=== PATIENT | female | born 1950 | race African-American/Black ===

== ENCOUNTER 2017-11-05 14:31 | Inpatient (IN) | payer MEDICARE, MEDICAID ==
[~2017-11-05] VITALS: Ht 162.6 cm; Wt 76.7 kg
[~2017-11-05 14:31] MED LIST: HYDROCODONE PO
[2017-11-05] MEDS ORDERED: KETOROLAC 30MG/ML VIAL IV STA (15:20)
[2017-11-05 16:53] LABS: BASOPHILS % 0.9 % (0.0-2.0); EOSINOPHILS % 2.5 % (0.0-5.0); HEMATOCRIT. 42.8 % (36.0-48.0); HEMOGLOBIN. 14.2 g/dL (12.0-16.0); LYMPHOCYTES % 40.8 % (20.0-50.0); MEAN CORPUSCULAR HEMOGLOBIN 30.6 pg (28.0-32.0); MEAN CORPUSCULAR VOLUME 92.2 fL (81.0-99.0); MEAN PLATELET VOLUME 9.4 fl (7.4-10.4); MONOCYTES % 14.1 % (2.0-8.0); NEUTROPHILS % 41.7 % (40.0-76.0); PLATELET 246 x1000/uL (130-400); RED BLOOD CELL COUNT 4.65 mill/uL (4.2-5.4); RED CELL DISTRIBUTION WIDTH 15.7 % (11.6-14.6)
[2017-11-05 16:59] LABS: CHLORIDE 104 mEq/L (98-107)
[2017-11-05 17:00] LABS: PARTIAL THROMBOPLASTIN TIME 34.4 sec (23.4-31.0); PROTHROMBIN TIME 10.5 sec (9.1-11.1)
[2017-11-05] MEDS ORDERED: CLONIDINE 0.1MG TABLET PO PRN (17:00)
[2017-11-05] MEDS ORDERED: ONDANSETRON HCL 4MG/2ML INJ IV PRN (17:00)
[2017-11-05] MEDS ORDERED: MORPHINE SULFATE 4 MG/ML CPJ (NOT FOR IM USE) IV PRN (17:30)
[2017-11-05 20:00] VITALS: BP 106/56
[2017-11-05 20:24] LABS: CLARITY URINE CLEAR (CLEAR); COLOR URINE YELLOW (YELLOW); KETONES URINE NEGATIVE (NEGATIVE); LEUKOCYTE ESTERASE URINE TRACE (NEGATIVE); NITRITE URINE NEGATIVE (NEGATIVE); OCCULT BLOOD URINE NEGATIVE (NEGATIVE); PH URINE 5.5 (4.5-8.0); PROTEIN URINE NEGATIVE (NEGATIVE); SPECIFIC GRAVITY URINE 1.015 (1.005-1.030)
[2017-11-05] MEDS: HYDROCODONE/ACETAMINOPHEN 5/325MG TABLET PO PRN (20:43)
[2017-11-05 22:14] VITALS: BP 106/56
[2017-11-06] VITALS: BP 108/51
[2017-11-06 04:00] VITALS: BP 123/55
[2017-11-06 06:57] LABS: CHLORIDE 105 mEq/L (98-107)
[2017-11-06 08:00] VITALS: BP 112/61
[2017-11-06 12:00] VITALS: BP 123/48
[2017-11-06 13:14] LABS: BASOPHILS % 0.5 % (0.0-2.0); EOSINOPHILS % 2.9 % (0.0-5.0); HEMATOCRIT. 40.2 % (36.0-48.0); HEMOGLOBIN. 13.2 g/dL (12.0-16.0); LYMPHOCYTES % 50.1 % (20.0-50.0); MEAN CORPUSCULAR HEMOGLOBIN 30.1 pg (28.0-32.0); MEAN CORPUSCULAR VOLUME 91.8 fL (81.0-99.0); MEAN PLATELET VOLUME 9.5 fl (7.4-10.4); MONOCYTES % 13.1 % (2.0-8.0); NEUTROPHILS % 33.4 % (40.0-76.0); PLATELET 223 x1000/uL (130-400); RED BLOOD CELL COUNT 4.38 mill/uL (4.2-5.4); RED CELL DISTRIBUTION WIDTH 15.7 % (11.6-14.6)
[2017-11-06 16:00] VITALS: BP 121/60
[2017-11-06 20:00] VITALS: BP 105/49
[2017-11-06] MEDS: ENOXAPARIN 40MG/0.4ML SYR SUBCUT SCH (20:48)
[2017-11-07] VITALS: BP 119/46
[2017-11-07 04:00] VITALS: BP 110/46
[2017-11-07 08:00] VITALS: BP 135/64
[2017-11-07 12:00] VITALS: BP 127/59
[2017-11-07 16:00] VITALS: BP 122/58
[2017-11-07] MEDS: ENOXAPARIN 40MG/0.4ML SYR SUBCUT SCH (17:42)
[2017-11-07 20:00] VITALS: BP 113/59
[2017-11-08] VITALS: BP 129/66
[2017-11-08 04:00] VITALS: BP 117/69
[2017-11-08] MEDS: HYDROCODONE/ACETAMINOPHEN 5/325MG TABLET PO PRN ×2 (06:12→22:56)
[2017-11-08 08:00] VITALS: BP 119/52
[2017-11-08 12:00] VITALS: BP 139/63
[2017-11-08 16:00] VITALS: BP 102/30
[2017-11-08] MEDS: ENOXAPARIN 40MG/0.4ML SYR SUBCUT SCH (17:08)
[2017-11-08 20:00] VITALS: BP 106/52
[2017-11-09] VITALS: BP 126/66
[2017-11-09] MEDS: HYDROCODONE/ACETAMINOPHEN 5/325MG TABLET PO PRN ×2 (03:26→23:48)
[2017-11-09 04:00] VITALS: BP 124/75
[2017-11-09 05:56] LABS: HEMATOCRIT. 42.8 % (36.0-48.0); HEMOGLOBIN. 14.3 g/dL (12.0-16.0); MEAN CORPUSCULAR HEMOGLOBIN 30.8 pg (28.0-32.0); MEAN PLATELET VOLUME 9.8 fl (7.4-10.4); PLATELET 227 x1000/uL (130-400); RED BLOOD CELL COUNT 4.65 mill/uL (4.2-5.4); RED CELL DISTRIBUTION WIDTH 15.4 % (11.6-14.6)
[2017-11-09 06:12] LABS: CHLORIDE 99 mEq/L (98-107)
[2017-11-09 08:00] VITALS: BP 113/65
[2017-11-09 12:00] VITALS: BP 114/58
[2017-11-09] MEDS ORDERED: IPRATROPIUM/ALBUTEROL 0.5-3(2.5)MG/3ML NEB HHN PRN (15:15)
[2017-11-09] MEDS: NICOTINE 7MG PATCH TD SCH (15:48)
[2017-11-09 16:00] VITALS: BP 129/106
[2017-11-09] MEDS: ENOXAPARIN 40MG/0.4ML SYR SUBCUT SCH (18:00)
[2017-11-09 19:02] LABS: PLATELET ESTIMATE NORMAL
[2017-11-09 20:00] VITALS: BP 112/64
[2017-11-10] VITALS: BP 109/65
[2017-11-10] MEDS: HYDROCODONE/ACETAMINOPHEN 5/325MG TABLET PO PRN ×3 (04:57→18:55)
[2017-11-10 08:00] VITALS: BP 118/73
[2017-11-10] MEDS: NICOTINE 7MG PATCH TD SCH (09:00)
[2017-11-10 16:00] VITALS: BP 116/55
[2017-11-10] MEDS: ENOXAPARIN 40MG/0.4ML SYR SUBCUT SCH (18:18)
[2017-11-10 20:00] VITALS: BP 99/65
[2017-11-11] VITALS: BP 98/56
[2017-11-11] MEDS: HYDROCODONE/ACETAMINOPHEN 5/325MG TABLET PO PRN ×2 (06:47→21:11)
[2017-11-11 08:00] VITALS: BP 118/59
[2017-11-11] MEDS: NICOTINE 7MG PATCH TD SCH (08:59)
[2017-11-11 12:00] VITALS: BP 96/32
[2017-11-11 16:00] VITALS: BP 128/85
[2017-11-11] MEDS: ENOXAPARIN 40MG/0.4ML SYR SUBCUT SCH (18:26)
[2017-11-11 20:00] VITALS: BP 114/58
[2017-11-12] VITALS: BP 111/56
[2017-11-12 04:00] VITALS: BP_SYST 127; BP_SYST 138; BP_DIAS 68; BP_DIAS 77
[2017-11-12] MEDS: HYDROCODONE/ACETAMINOPHEN 5/325MG TABLET PO PRN ×2 (06:50→23:30)
[2017-11-12 08:00] VITALS: BP 107/55
[2017-11-12] MEDS: NICOTINE 7MG PATCH TD SCH (08:53)
[2017-11-12 12:00] VITALS: BP 120/54
[2017-11-12 16:00] VITALS: BP 129/65
[2017-11-12] MEDS: ENOXAPARIN 40MG/0.4ML SYR SUBCUT SCH (17:09)
[2017-11-12 20:00] VITALS: BP 102/57
[2017-11-13] VITALS: BP 115/58
[2017-11-13] MEDS: NICOTINE 7MG PATCH TD SCH (08:23)
[2017-11-13] MEDS: ENOXAPARIN 40MG/0.4ML SYR SUBCUT SCH (17:18)
[2017-11-13] MEDS: HYDROCODONE/ACETAMINOPHEN 5/325MG TABLET PO PRN (21:30)
[2017-11-14 00:31] VITALS: BP 107/49
[2017-11-14 04:00] VITALS: BP 109/33
[2017-11-14 08:00] VITALS: BP 106/38
[2017-11-14] MEDS: NICOTINE 7MG PATCH TD SCH (08:39)
[2017-11-14] MEDS: HYDROCODONE/ACETAMINOPHEN 5/325MG TABLET PO PRN (08:45)
[2017-11-14] MEDS: ENOXAPARIN 40MG/0.4ML SYR SUBCUT SCH (18:00)
[2017-11-14 20:00] VITALS: BP 110/59
[2017-11-15] VITALS (7 sets, daily range): BP systolic 98–116; BP diastolic 41–71
[2017-11-15] MEDS: HYDROCODONE/ACETAMINOPHEN 5/325MG TABLET PO PRN ×2 (03:31→10:17)
[2017-11-15 07:03] LABS: BASOPHILS % 0.4 % (0.0-2.0); EOSINOPHILS % 1.2 % (0.0-5.0); HEMATOCRIT. 42.5 % (36.0-48.0); HEMOGLOBIN. 14.4 g/dL (12.0-16.0); LYMPHOCYTES % 50.8 % (20.0-50.0); MEAN CORPUSCULAR HEMOGLOBIN 31.2 pg (28.0-32.0); MEAN CORPUSCULAR VOLUME 91.8 fL (81.0-99.0); MEAN PLATELET VOLUME 9.5 fl (7.4-10.4); MONOCYTES % 13.9 % (2.0-8.0); NEUTROPHILS % 33.7 % (40.0-76.0); PLATELET 233 x1000/uL (130-400); RED BLOOD CELL COUNT 4.63 mill/uL (4.2-5.4); RED CELL DISTRIBUTION WIDTH 15.4 % (11.6-14.6)
[2017-11-15 07:35] LABS: CHLORIDE 99 mEq/L (98-107)
[2017-11-15 07:47] LABS: PHOSPHORUS 4.9 mg/dL (2.5-4.9)
[2017-11-15] MEDS: NICOTINE 7MG PATCH TD SCH (08:34)
[2017-11-15] MEDS: ENOXAPARIN 40MG/0.4ML SYR SUBCUT SCH ×2 (17:56→17:57)
[2017-11-16] VITALS: BP 130/100
[2017-11-16 04:00] VITALS: BP 110/53
[2017-11-16 08:00] VITALS: BP 131/101
[2017-11-16] MEDS: NICOTINE 7MG PATCH TD SCH (09:00)
[2017-11-16 15:10] VITALS: BP 121/59
[2017-11-16 16:00] VITALS: BP 100/54
== END 2017-11-16 18:05 | disposition home or self-care (01) | DRG 349 ==
LOC: ER 14:49 → 6EST 17:03 → ENRESERV 19:45
PROVIDERS: ADMIT Internal Medicine; ATTEND Internal Medicine
DX: T84.020A Dislocation of internal right hip prosthesis, initial encounter (principal); S72.001A Fracture of unspecified part of neck of right femur, initial encounter for closed fracture; E44.0 Moderate protein-calorie malnutrition; T84.030A Mechanical loosening of internal right hip prosthetic joint, initial encounter; I10 Essential (primary) hypertension; G40.909 Epilepsy, unspecified, not intractable, without status epilepticus; F17.210 Nicotine dependence, cigarettes, uncomplicated; F14.10 Cocaine abuse, uncomplicated; F12.10 Cannabis abuse, uncomplicated; D72.819 Decreased white blood cell count, unspecified; Z96.641 Presence of right artificial hip joint; Y79.2 Prosthetic and other implants, materials and accessory orthopedic devices associated with adverse incidents; Z91.19 Patient's noncompliance with other medical treatment and regimen; Z68.29 Body mass index [BMI] 29.0-29.9, adult; X58.XXXA Exposure to other specified factors, initial encounter; Y93.89 Activity, other specified; Y92.091 Bathroom in other non-institutional residence as the place of occurrence of the external cause; Y99.8 Other external cause status
CPT/HCPCS: 36415; 71045; 73502; 80048; 80053; 81003; 82962; 83036; 83735; 84100; 85025; 85610; 85730; 86850; 86900; 92523; 93005; 96374; 97116; 97162; 97166; 99285; J1650; J1885; J2270

== ENCOUNTER 2020-11-18 02:47 | Emergency (ER) | payer MEDICARE, OTHER ==
[~2020-11-18] VITALS: Ht 160 cm; Wt 52.0 kg
[2020-11-18] MEDS ORDERED: DIPHENHYDRAMINE 50MG/ML VIAL IV ONE (04:30)
[2020-11-18] MEDS ORDERED: METOCLOPRAMIDE HCL 10MG/2ML VIAL IV ONE (04:30)
[2020-11-18] MEDS ORDERED: SODIUM CHLORIDE 0.9% 1,000 ML IV ONE (04:30)
[2020-11-18 04:54] LABS: CHLORIDE 107 mEq/L (98-107)
[2020-11-18 04:56] LABS: HEMATOCRIT. 38.8 % (36.0-48.0); HEMOGLOBIN. 12.8 g/dL (12.0-16.0); MEAN CORPUSCULAR HEMOGLOBIN 30.3 pg (28.0-32.0); MEAN PLATELET VOLUME 8.5 fl (7.4-10.4); PLATELET 279 x1000/uL (130-400); RED BLOOD CELL COUNT 4.22 mill/uL (4.2-5.4); RED CELL DISTRIBUTION WIDTH 16.2 % (11.6-14.6)
[2020-11-18 06:24] LABS: PLATELET ESTIMATE NORMAL
[2020-11-18] MEDS ORDERED: KETOROLAC 15MG/ML VIAL IV ONE (07:15)
[2020-11-18] MEDS ORDERED: MAGNESIUM 2 G PREMIX 50 ML IV ONE (08:00)
[2020-11-18] MEDS ORDERED: DIVALPROEX SODIUM 500MG DR TABLET PO ONE (08:00)
[2020-11-18 08:51] VITALS: BP 132/66
== END 2020-11-18 09:07 | disposition home or self-care (01) ==
LOC: ER 02:47
DX: R51.9 Headache, unspecified (principal); F14.10 Cocaine abuse, uncomplicated; F12.10 Cannabis abuse, uncomplicated; I10 Essential (primary) hypertension
CPT/HCPCS: 36415; 70450; 80053; 85025; 96361; 96374; 96375; 99285; J1200; J2765; J7030; J1885; J3475

== ENCOUNTER 2021-02-12 14:47 | Inpatient (IN) | payer MEDICARE, OTHER ==
[~2021-02-12] VITALS: Ht 165.1 cm; Wt 50.4 kg
[2021-02-12 19:11] LABS: BASOPHILS % 0.5 % (0.0-2.0); EOSINOPHILS % 0.6 % (0.0-5.0); HEMATOCRIT. 39.6 % (36.0-48.0); HEMOGLOBIN. 12.9 g/dL (12.0-16.0); LYMPHOCYTES % 38.4 % (20.0-50.0); MEAN CORPUSCULAR HEMOGLOBIN 28.6 pg (28.0-32.0); MEAN CORPUSCULAR VOLUME 87.7 fL (81.0-99.0); MEAN PLATELET VOLUME 8.2 fl (7.4-10.4); MONOCYTES % 13.8 % (2.0-8.0); NEUTROPHILS % 46.7 % (40.0-76.0); PLATELET 383 x1000/uL (130-400); RED BLOOD CELL COUNT 4.52 mill/uL (4.2-5.4); RED CELL DISTRIBUTION WIDTH 14.6 % (11.6-14.6)
[2021-02-12 19:21] LABS: CHLORIDE 102 mEq/L (98-107)
[2021-02-12] MEDS ORDERED: MORPHINE SULFATE 4 MG/ML CPJ (NOT FOR IM USE) IV ONE (23:00)
[2021-02-12 23:28] LABS: CLARITY URINE CLOUDY (CLEAR); COLOR URINE YELLOW (YELLOW); KETONES URINE NEGATIVE (NEGATIVE); LEUKOCYTE ESTERASE URINE 3+ (NEGATIVE); NITRITE URINE NEGATIVE (NEGATIVE); OCCULT BLOOD URINE NEGATIVE (NEGATIVE); PH URINE 6.5 (4.5-8.0); PROTEIN URINE NEGATIVE (NEGATIVE); SPECIFIC GRAVITY URINE 1.015 (1.005-1.030)
[2021-02-13] MEDS ORDERED: CEFTRIAXONE 1 G PREMIX 50 ML IV ONE (00:45)
[2021-02-13] MEDS ORDERED: SODIUM CHLORIDE 0.9% 1,000 ML IV ONE (00:45)
[2021-02-13] MEDS: MORPHINE SULFATE 2 MG/ML CPJ (NOT FOR IM USE) IV PRN ×4 (06:26→22:23)
[2021-02-13] MEDS ORDERED: CEFTRIAXONE 1 G PREMIX 50 ML IV SCH (09:45)
[2021-02-13] MEDS ORDERED: ONDANSETRON HCL 4MG/2ML INJ IV PRN (09:45)
[2021-02-13 10:00] VITALS: BP 150/48
[2021-02-13] MEDS ORDERED: ASPI-1497 MT (11:10)
[2021-02-13 12:00] VITALS: BP_SYST 149; BP_SYST 150; BP_DIAS 48; BP_DIAS 77
[2021-02-13 15:55] VITALS: BP 138/49
[2021-02-13 20:00] VITALS: BP 128/60
[2021-02-13] MEDS ORDERED: IOHEXOL-300 100 ML BOTTLE ONE (23:06)
[2021-02-14] VITALS: BP 124/58
[2021-02-14] MEDS: CEFTRIAXONE 1,000 MG in DEXTROSE 5% WATER 50 ML IV SCH (02:41)
[2021-02-14] MEDS: MORPHINE SULFATE 2 MG/ML CPJ (NOT FOR IM USE) IV PRN ×4 (02:41→17:27)
[2021-02-14 03:54] LABS: *AMPHETAMINES SCREEN URINE NEGATIVE (NEGATIVE); *BARBITURATES SCREEN URINE NEGATIVE (NEGATIVE); *BENZODIAZEPINES SCREEN URINE NEGATIVE (NEGATIVE); *COCAINE SCREEN URINE PRESUMTIVE POSITIVE (NEGATIVE); METHADONE URINE SCREEN NEGATIVE (NEGATIVE)
[2021-02-14 03:55] LABS: CANNABINOID URINE SCREEN NEGATIVE (NEGATIVE); OPIATES URINE SCREEN PRESUMTIVE POSITIVE (NEGATIVE); PHENCYCLIDINE URINE SCREEN NEGATIVE (NEGATIVE)
[2021-02-14 04:00] VITALS: BP 121/55
[2021-02-14 08:00] VITALS: BP 135/72
[2021-02-14 10:31] LABS: HEMATOCRIT. 38.3 % (36.0-48.0); HEMOGLOBIN. 12.5 g/dL (12.0-16.0); MEAN CORPUSCULAR HEMOGLOBIN 29.1 pg (28.0-32.0); MEAN PLATELET VOLUME 8.3 fl (7.4-10.4); PLATELET 372 x1000/uL (130-400); RED CELL DISTRIBUTION WIDTH 14.8 % (11.6-14.6)
[2021-02-14 10:45] LABS: CHLORIDE 98 mEq/L (98-107)
[2021-02-14 12:00] VITALS: BP 121/53
[2021-02-14 13:18] LABS: PLATELET ESTIMATE NORMAL
[2021-02-14 16:00] VITALS: BP 109/46
[2021-02-14 20:00] VITALS: BP 110/52
[2021-02-15] VITALS: BP 128/60
[2021-02-15] MEDS: CEFTRIAXONE 1,000 MG in DEXTROSE 5% WATER 50 ML IV SCH (01:13)
[2021-02-15] MEDS: MORPHINE SULFATE 2 MG/ML CPJ (NOT FOR IM USE) IV PRN ×2 (01:14→08:47)
[2021-02-15 04:00] VITALS: BP 135/58
[2021-02-15 08:00] VITALS: BP 110/47
[2021-02-15 12:00] VITALS: BP 129/54
[2021-02-15] MEDS: HYDROCODONE/ACETAMINOPHEN 10/325MG TABLET PO PRN ×3 (12:05→23:24)
[2021-02-15 16:00] VITALS: BP 110/60
[2021-02-15 20:00] VITALS: BP 135/78
[2021-02-16] VITALS: BP 123/65
[2021-02-16] MEDS: CEFTRIAXONE 1,000 MG in DEXTROSE 5% WATER 50 ML IV SCH (00:39)
[2021-02-16 04:00] VITALS: BP 119/60
[2021-02-16 08:00] VITALS: BP 118/44
[2021-02-16 12:00] VITALS: BP 124/75
[2021-02-16] MEDS: HYDROCODONE/ACETAMINOPHEN 10/325MG TABLET PO PRN (14:52)
[2021-02-16 16:00] VITALS: BP 139/56
[2021-02-16 20:00] VITALS: BP 119/41
[2021-02-16] MEDS ORDERED: NALOXONE HCL 0.4MG/ML VIAL IV PRN (21:45)
[2021-02-17] VITALS: BP 127/42
[2021-02-17] MEDS: CEFTRIAXONE 1,000 MG in DEXTROSE 5% WATER 50 ML IV SCH (01:00)
[2021-02-17] MEDS: HYDROCODONE/ACETAMINOPHEN 10/325MG TABLET PO PRN ×3 (03:53→23:27)
[2021-02-17 04:00] VITALS: BP 135/52
[2021-02-17 08:00] VITALS: BP 132/57
[2021-02-17 15:59] VITALS: BP 130/80
[2021-02-17 20:00] VITALS: BP 115/60
[2021-02-17 23:56] VITALS: BP 138/57
[2021-02-18] MEDS: CEFTRIAXONE 1,000 MG in DEXTROSE 5% WATER 50 ML IV SCH (00:46)
[2021-02-18 04:00] VITALS: BP 138/59
[2021-02-18 08:00] VITALS: BP 125/63
[2021-02-18] MEDS: HYDROCODONE/ACETAMINOPHEN 10/325MG TABLET PO PRN (10:12)
[2021-02-18 12:00] VITALS: BP 106/73
[2021-02-18 16:00] VITALS: BP 113/54
[2021-02-18 20:00] VITALS: BP 129/57
[2021-02-19] VITALS: BP 130/61
[2021-02-19 04:00] VITALS: BP_SYST 106; BP_SYST 134; BP_DIAS 49; BP_DIAS 64
[2021-02-19 08:00] VITALS: BP 136/70
[2021-02-19 11:46] VITALS: BP 125/53
[2021-02-19] MEDS: HYDROCODONE/ACETAMINOPHEN 10/325MG TABLET PO PRN ×2 (12:29→18:54)
[2021-02-19 16:00] VITALS: BP 119/81
[2021-02-19 20:00] VITALS: BP 116/48
[2021-02-20] VITALS: BP 122/51
[2021-02-20 04:08] VITALS: BP 112/45
[2021-02-20 08:20] VITALS: BP 118/54
[2021-02-20 12:00] VITALS: BP 122/51
[2021-02-20 16:30] VITALS: BP 114/55
[2021-02-20 20:00] VITALS: BP 125/65
[2021-02-20] MEDS: ACETAMINOPHEN 325MG TABLET PO PRN (20:56)
[2021-02-21] VITALS: BP 118/58
[2021-02-21 04:00] VITALS: BP 119/65
[2021-02-21 08:00] VITALS: BP 100/68
[2021-02-21 12:00] VITALS: BP 117/57
[2021-02-21 16:00] VITALS: BP 98/61
[2021-02-21] MEDS: ACETAMINOPHEN 325MG TABLET PO PRN (19:54)
[2021-02-21 20:00] VITALS: BP 121/60
[2021-02-22] VITALS: BP 113/50
[2021-02-22] MEDS: ACETAMINOPHEN 325MG TABLET PO PRN ×2 (02:41→20:50)
[2021-02-22 04:00] VITALS: BP 110/54
[2021-02-22 08:00] VITALS: BP 100/61
[2021-02-22 12:00] VITALS: BP 111/54
[2021-02-22 16:00] VITALS: BP 103/45
[2021-02-22 20:00] VITALS: BP 104/37
[2021-02-23] VITALS: BP 110/63
[2021-02-23] MEDS: ACETAMINOPHEN 325MG TABLET PO PRN ×3 (05:02→19:09)
[2021-02-23 16:00] VITALS: BP 115/55
[2021-02-23 20:00] VITALS: BP 100/45
[2021-02-24] VITALS: BP 104/41
[2021-02-24] MEDS: ACETAMINOPHEN 325MG TABLET PO PRN ×2 (03:55→20:18)
[2021-02-24 04:00] VITALS: BP 104/36
[2021-02-24 08:09] VITALS: BP 102/32
[2021-02-24 11:52] VITALS: BP 106/38
[2021-02-24 16:27] VITALS: BP 110/50
[2021-02-24 20:00] VITALS: BP 114/52
[2021-02-25] VITALS: BP 134/52
[2021-02-25 08:15] VITALS: BP 105/42
[2021-02-25 16:30] VITALS: BP 126/104
[2021-02-25 20:00] VITALS: BP 110/47
[2021-02-25] MEDS: ACETAMINOPHEN 325MG TABLET PO PRN (21:15)
[2021-02-26] VITALS: BP 101/52
[2021-02-26 04:00] VITALS: BP 111/50
[2021-02-26 08:00] VITALS: BP 138/49
[2021-02-26 12:00] VITALS: BP 121/52
[2021-02-26 16:00] VITALS: BP 112/66
[2021-02-26 20:00] VITALS: BP 98/53
[2021-02-26] MEDS: ACETAMINOPHEN 325MG TABLET PO PRN (21:14)
[2021-02-27] VITALS: BP 115/79
[2021-02-27 04:00] VITALS: BP 115/85
[2021-02-27 08:00] VITALS: BP 105/42
[2021-02-27 16:00] VITALS: BP 109/48
[2021-02-27 20:36] VITALS: BP 112/84
[2021-02-27] MEDS: ACETAMINOPHEN 325MG TABLET PO PRN (22:35)
[2021-02-28] VITALS: BP 106/60
[2021-02-28 04:48] VITALS: BP 98/58
[2021-02-28 16:14] VITALS: BP 121/61
[2021-02-28 20:00] VITALS: BP 100/48
[2021-02-28] MEDS: ACETAMINOPHEN 325MG TABLET PO PRN (20:54)
[2021-03-01] VITALS: BP 105/46
[2021-03-01 04:00] VITALS: BP 106/50
[2021-03-01] MEDS: ACETAMINOPHEN 325MG TABLET PO PRN (14:03)
[2021-03-01 16:10] VITALS: BP 110/74
[2021-03-01 16:15] VITALS: BP 107/53
[2021-03-01 16:17] VITALS: BP 110/74
[2021-03-01 20:00] VITALS: BP 107/38
[2021-03-02] VITALS: BP_SYST 107; BP_SYST 139; BP_DIAS 50; BP_DIAS 58
[2021-03-02 04:00] VITALS: BP 107/42
[2021-03-02 08:00] VITALS: BP 121/48
[2021-03-02] MEDS: ACETAMINOPHEN 325MG TABLET PO PRN ×2 (11:34→22:00)
[2021-03-02 12:00] VITALS: BP 115/50
[2021-03-02 16:00] VITALS: BP 108/47
[2021-03-02 20:00] VITALS: BP 96/59
[2021-03-03] VITALS: BP 124/58
[2021-03-03 04:00] VITALS: BP 142/86
[2021-03-03 08:00] VITALS: BP 117/72
[2021-03-03 12:00] VITALS: BP 123/46
[2021-03-03 15:39] VITALS: BP 110/58
[2021-03-03 20:00] VITALS: BP 128/50
[2021-03-03] MEDS: ACETAMINOPHEN 325MG TABLET PO PRN (23:39)
[2021-03-04] VITALS: BP 116/46
[2021-03-04 04:00] VITALS: BP 119/71
[2021-03-04 08:00] VITALS: BP 114/85
[2021-03-04 08:12] VITALS: BP 114/85
[2021-03-04] MEDS ORDERED: HYDR-4001 MT (10:55)
[2021-03-04] MEDS: ACETAMINOPHEN 325MG TABLET PO PRN ×2 (14:07→21:42)
[2021-03-04 16:35] VITALS: BP 120/70
[2021-03-04 20:00] VITALS: BP 114/56
[2021-03-05 04:00] VITALS: BP 108/57
[2021-03-05] MEDS: ACETAMINOPHEN 325MG TABLET PO PRN ×3 (08:05→23:17)
[2021-03-05 08:06] VITALS: BP 115/49
[2021-03-05 16:16] VITALS: BP 113/72
[2021-03-05 20:00] VITALS: BP 110/53
[2021-03-06] VITALS: BP 130/54
[2021-03-06 04:00] VITALS: BP 119/50
[2021-03-06] MEDS: ACETAMINOPHEN 325MG TABLET PO PRN ×3 (06:48→19:40)
[2021-03-06 08:15] VITALS: BP 115/61
[2021-03-06 12:00] VITALS: BP 114/54
[2021-03-06 16:00] VITALS: BP 112/56
[2021-03-06 20:00] VITALS: BP 116/48
[2021-03-07] VITALS: BP 114/44
[2021-03-07] MEDS: ACETAMINOPHEN 325MG TABLET PO PRN (02:18)
[2021-03-07 04:00] VITALS: BP 109/48
[2021-03-07 08:00] VITALS: BP 106/40
[2021-03-07 14:22] VITALS: BP 106/40
== END 2021-03-07 15:32 | disposition home or self-care (01) | DRG 349 ==
LOC: ER 14:47 → MICUSO 23:15 → 6WST 02-13 11:03
PROVIDERS: ADMIT Internal Medicine; ATTEND Internal Medicine
DX: M97.01XA Periprosthetic fracture around internal prosthetic right hip joint, initial encounter (principal); S12.110A Anterior displaced Type II dens fracture, initial encounter for closed fracture; E43 Unspecified severe protein-calorie malnutrition; I10 Essential (primary) hypertension; J44.9 Chronic obstructive pulmonary disease, unspecified; Z96.641 Presence of right artificial hip joint; W18.39XA Other fall on same level, initial encounter; K59.00 Constipation, unspecified; Z20.822 Contact with and (suspected) exposure to COVID-19; N39.0 Urinary tract infection, site not specified; Z68.1 Body mass index [BMI] 19.9 or less, adult; Z71.51 Drug abuse counseling and surveillance of drug abuser; Y93.89 Activity, other specified; Y92.89 Other specified places as the place of occurrence of the external cause; Y99.8 Other external cause status; F14.90 Cocaine use, unspecified, uncomplicated; F11.90 Opioid use, unspecified, uncomplicated; M89.9 Disorder of bone, unspecified
CPT/HCPCS: 36415; 71045; 71260; 72141; 73502; 74177; 80048; 80053; 80305; 81003; 84484; 85025; 87426; 87635; 93005; 99285; C1893; J0696; J2270; J7030; J7060; L0172; Q9967

== ENCOUNTER 2021-07-20 00:46 | Emergency (ER) | payer MEDICARE, MEDICAID ==
[~2021-07-20] VITALS: Ht 170.2 cm; Wt 55.0 kg
[~2021-07-20 00:46] MED LIST changes: +ASPI-1497 MT; +HYDR-4001 MT
[2021-07-20] MEDS ORDERED: HYDROCODONE/ACETAMINOPHEN 10/325MG TABLET PO ONE (02:30)
[2021-07-20] MEDS ORDERED: HYDROCODONE/ACETAMINOPHEN 10/325MG TABLET PO NR (02:45)
[2021-07-20 05:15] VITALS: BP 132/62
== END 2021-07-20 05:15 | disposition home or self-care (01) ==
LOC: ER 00:46
DX: R51.9 Headache, unspecified (principal); I10 Essential (primary) hypertension; Z79.82 Long term (current) use of aspirin; Z96.649 Presence of unspecified artificial hip joint
CPT/HCPCS: 99283

== ENCOUNTER 2021-12-22 10:45 | Emergency (ER) | payer MEDICARE, MEDICAID ==
[~2021-12-22] VITALS: Ht 165.1 cm; Wt 68.0 kg
[2021-12-22] MEDS ORDERED: KETOROLAC 60MG/2ML VIAL IM ONE (12:30)
[2021-12-22] MEDS ORDERED: HYDROCODONE/ACETAMINOPHEN 5/325MG TABLET PO ONE (12:30)
[2021-12-22] MEDS ORDERED: NAPR-681 MT (16:48)
[2021-12-23 00:40] VITALS: BP 118/62
== END 2021-12-23 00:41 | disposition home or self-care (01) ==
LOC: ER 10:55
DX: M47.892 Other spondylosis, cervical region (principal); R51.9 Headache, unspecified; I10 Essential (primary) hypertension; F14.10 Cocaine abuse, uncomplicated; F12.10 Cannabis abuse, uncomplicated; Z96.649 Presence of unspecified artificial hip joint; Z79.82 Long term (current) use of aspirin; Z88.3 Allergy status to other anti-infective agents
CPT/HCPCS: 70450; 96372; 99284; J1885

== ENCOUNTER 2022-01-04 11:15 | Inpatient (IN) | payer MEDICARE, MEDICAID ==
[~2022-01-04] VITALS: Ht 320 cm; Wt 49.9 kg
[~2022-01-04 11:15] MED LIST changes: +NAPR-681 MT
[2022-01-04] MEDS ORDERED: ACETAMINOPHEN 325MG TABLET PO STA (12:11)
[2022-01-04] MEDS ORDERED: TETRACAINE 0.5% OPHTH DROPS 4ML LEFTEYE ONE (12:30)
[2022-01-04] MEDS ORDERED: METOCLOPRAMIDE HCL 10MG/2ML VIAL IV ONE (12:30)
[2022-01-04] MEDS ORDERED: DIPHENHYDRAMINE 50MG/ML VIAL IV ONE (12:30)
[2022-01-04 14:59] LABS: BASOPHILS % 0.5 % (0.0-2.0); EOSINOPHILS % 0.4 % (0.0-5.0); HEMATOCRIT. 39.5 % (36.0-48.0); LYMPHOCYTES % 42.3 % (20.0-50.0); MEAN CORPUSCULAR HEMOGLOBIN 31.3 pg (28.0-32.0); MEAN CORPUSCULAR VOLUME 95.3 fL (81.0-99.0); MEAN PLATELET VOLUME 9.3 fl (7.4-10.4); MONOCYTES % 14.3 % (2.0-8.0); NEUTROPHILS % 42.5 % (40.0-76.0); PLATELET 219 x1000/uL (130-400); RED BLOOD CELL COUNT 4.15 mill/uL (4.2-5.4); RED CELL DISTRIBUTION WIDTH 14.8 % (11.6-14.6)
[2022-01-04 15:07] LABS: CHLORIDE 104 mEq/L (98-107)
[2022-01-04 15:32] LABS: PROTHROMBIN TIME 11.1 sec (9.6-11.0)
[2022-01-04] MEDS ORDERED: MORPHINE SULFATE 4 MG/ML CPJ (NOT FOR IM USE) IV ONE (16:30)
[2022-01-04] MEDS ORDERED: HYDROCODONE/ACETAMINOPHEN 10/325MG TABLET PO PRN (23:30)
[2022-01-04] MEDS ORDERED: LEVETIRACETAM 500MG PREMIX 100 ML IV ONE (23:30)
[2022-01-04 23:33] VITALS: BP 126/63
[2022-01-04] MEDS: HYDROCODONE/ACETAMINOPHEN 10/325MG TABLET PO PRN (23:41)
[2022-01-05] VITALS: BP 126/63
[2022-01-05] MEDS: LORAZEPAM 1MG TABLET PO PRN ×2 (00:12→08:18)
[2022-01-05] MEDS: HYDROCODONE/ACETAMINOPHEN 10/325MG TABLET PO PRN ×3 (06:07→20:04)
[2022-01-05 07:41] LABS: HEMATOCRIT. 38.8 % (36.0-48.0); HEMOGLOBIN. 12.8 g/dL (12.0-16.0); MEAN CORPUSCULAR HEMOGLOBIN 31.4 pg (28.0-32.0); PLATELET 198 x1000/uL (130-400); RED BLOOD CELL COUNT 4.08 mill/uL (4.2-5.4); RED CELL DISTRIBUTION WIDTH 14.4 % (11.6-14.6)
[2022-01-05 08:00] VITALS: BP 136/52
[2022-01-05] MEDS: LEVETIRACETAM 500MG TABLET PO SCH ×2 (08:18→20:04)
[2022-01-05 08:44] LABS: CHLORIDE 101 mEq/L (98-107)
[2022-01-05 09:53] LABS: PLATELET ESTIMATE NORMAL
[2022-01-05 12:00] VITALS: BP 133/44
[2022-01-05 16:00] VITALS: BP 128/57
[2022-01-05 20:00] VITALS: BP 135/53
[2022-01-05] MEDS: PHENYTOIN SODIUM EXTENDED 100MG CAPSULE PO SCH (21:00)
[2022-01-06] VITALS: BP 124/46
[2022-01-06] MEDS: LORAZEPAM 1MG TABLET PO PRN ×3 (02:19→21:22)
[2022-01-06 04:00] VITALS: BP 138/25
[2022-01-06 08:41] VITALS: BP 108/69
[2022-01-06] MEDS: HYDROCODONE/ACETAMINOPHEN 10/325MG TABLET PO PRN ×2 (09:19→13:16)
[2022-01-06] MEDS: LEVETIRACETAM 500MG TABLET PO SCH ×2 (09:19→21:22)
[2022-01-06 11:43] VITALS: BP 110/50
[2022-01-06 16:01] VITALS: BP 116/71
[2022-01-06] MEDS ORDERED: NALOXONE HCL 0.4MG/ML VIAL IV PRN (16:15)
[2022-01-06 20:00] VITALS: BP 117/59
[2022-01-06] MEDS: PHENYTOIN SODIUM EXTENDED 100MG CAPSULE PO SCH (21:22)
[2022-01-07] VITALS: BP 135/103
[2022-01-07 07:50] VITALS: BP 123/70
[2022-01-07] MEDS: HYDROCODONE/ACETAMINOPHEN 10/325MG TABLET PO PRN (07:53)
[2022-01-07] MEDS: LEVETIRACETAM 500MG TABLET PO SCH (09:41)
[2022-01-07 11:27] VITALS: BP 149/76
[2022-01-07 15:58] VITALS: BP 115/60
[2022-01-07 16:26] VITALS: BP 149/76
== END 2022-01-07 17:52 | disposition home health service (06) | DRG 347 ==
LOC: ER 11:24 → 6EST 18:14 → EDBEDREQSVC 18:16 → ENRESERV 19:26
PROVIDERS: ADMIT Internal Medicine; ATTEND Internal Medicine
DX: M48.02 Spinal stenosis, cervical region (principal); S12.110A Anterior displaced Type II dens fracture, initial encounter for closed fracture; E44.0 Moderate protein-calorie malnutrition; T84.020A Dislocation of internal right hip prosthesis, initial encounter; E87.1 Hypo-osmolality and hyponatremia; G40.909 Epilepsy, unspecified, not intractable, without status epilepticus; I10 Essential (primary) hypertension; J44.9 Chronic obstructive pulmonary disease, unspecified; E87.5 Hyperkalemia; G89.29 Other chronic pain; M24.28 Disorder of ligament, vertebrae; F14.90 Cocaine use, unspecified, uncomplicated; F12.90 Cannabis use, unspecified, uncomplicated; Y79.2 Prosthetic and other implants, materials and accessory orthopedic devices associated with adverse incidents; Z86.73 Personal history of transient ischemic attack (TIA), and cerebral infarction without residual deficits; Z68.1 Body mass index [BMI] 19.9 or less, adult; Z79.899 Other long term (current) drug therapy; X58.XXXA Exposure to other specified factors, initial encounter; Y93.89 Activity, other specified; Y92.89 Other specified places as the place of occurrence of the external cause; Y99.8 Other external cause status; Z74.01 Bed confinement status
CPT/HCPCS: 36415; 71045; 72141; 72170; 80048; 80053; 84484; 85025; 86850; 86900; 93005; 93306; 99285; J1200; J2270; J2765; L0172

== ENCOUNTER 2023-05-29 11:47 | Emergency (ER) | payer MEDICARE, MEDICAID ==
[~2023-05-29] VITALS: Ht 172.7 cm; Wt 73.0 kg
[2023-05-29 11:51] VITALS: O2SAT 100
[2023-05-29] MEDS: MORPHINE SULFATE 4 MG/ML INJ (FOR IV/IM USE) IV ONE (13:44)
[2023-05-29] MEDS: ONDANSETRON HCL 4MG/2ML INJ IV ONE (13:44)
[2023-05-29 14:07] VITALS: BP 105/46; PULSE 62; RESP 15; TEMP 98.4
== END 2023-05-29 18:40 | disposition home or self-care (01) ==
LOC: ER 12:35
DX: M54.2 Cervicalgia (principal); I25.2 Old myocardial infarction; I10 Essential (primary) hypertension; Z87.410 Personal history of cervical dysplasia; Z88.1 Allergy status to other antibiotic agents; Z86.73 Personal history of transient ischemic attack (TIA), and cerebral infarction without residual deficits; Z86.59 Personal history of other mental and behavioral disorders
CPT/HCPCS: 72125; 96374; 96375; 99285; J2405; J2270; Z7610 ×2

== ENCOUNTER 2023-07-22 13:14 | Emergency (ER) | payer MEDICARE, MEDICAID ==
[~2023-07-22] VITALS: Ht 172.7 cm; Wt 86.0 kg
[2023-07-22 13:16] VITALS: O2SAT 98
[2023-07-22 14:00] VITALS: TEMP 98
[2023-07-22] MEDS: METOCLOPRAMIDE HCL 10MG/2ML VIAL IV ONE (14:03)
[2023-07-22 14:04] VITALS: BP 120/64; PULSE 92; RESP 15
[2023-07-22] MEDS: SODIUM CHLORIDE 0.9% 1,000 ML IV ONE (14:04)
[2023-07-22] MEDS: KETOROLAC 30MG/ML VIAL IV STA (14:04)
== END 2023-07-22 15:01 ==
LOC: ER 13:14
DX: R51.9 Headache, unspecified (principal); I25.2 Old myocardial infarction; I10 Essential (primary) hypertension; Z88.1 Allergy status to other antibiotic agents; Z86.73 Personal history of transient ischemic attack (TIA), and cerebral infarction without residual deficits; Z86.59 Personal history of other mental and behavioral disorders
CPT/HCPCS: 99285; 96374; 70450; 96361; 96375; J1885; J2765; J7030